=== PATIENT | female | born 1975 | race Caucasian/White ===

== ENCOUNTER 2017-12-21 18:17 | Emergency (ER) | payer BC ==
[2017-12-21] MEDS ORDERED: diazePAM 2 MG TAB PO ONE (18:30)
[2017-12-21] MEDS ORDERED: HYDROcodone 5MG/APAP 325MG 1 EA TAB PO ONE (18:30)
--- NOTE | 2017-12-21 19:28 | RAD ---
EXAM DESCRIPTION: Femur,Right (accession [id number]), Pelvis (accession [id number]) CLINICAL HISTORY: 42 years Female, trauma with medial hamstring disruption COMPARISON: None. FINDINGS: No evidence for an acute fracture of the pelvis or right femur. No dislocation. Several small calcific densities in the lower pelvis are suggestive of phleboliths. Visualized bowel gas pattern appears nonobstructive. Surrounding soft tissues are unremarkable. IMPRESSION: No evidence for an acute fracture of the pelvis or right femur. Electronically signed by: Chaparro Knox MD 12/21/2017 7:27 PM CDT
--- NOTE | 2017-12-21 19:28 | RAD ---
EXAM DESCRIPTION: Femur,Right (accession [id number]), Pelvis (accession [id number]) CLINICAL HISTORY: 42 years Female, trauma with medial hamstring disruption COMPARISON: None. FINDINGS: No evidence for an acute fracture of the pelvis or right femur. No dislocation. Several small calcific densities in the lower pelvis are suggestive of phleboliths. Visualized bowel gas pattern appears nonobstructive. Surrounding soft tissues are unremarkable. IMPRESSION: No evidence for an acute fracture of the pelvis or right femur. Electronically signed by: Chaparro Knox MD 12/21/2017 7:27 PM CDT
[2017-12-21] MEDS ORDERED: HYDROcodone 7.5MG/APAP 325MG 1 EA TAB PO ONE (19:36)
[2017-12-21] MEDS ORDERED: KETOROLAC TROMETHAMINE INJ 30 MG/ML VIAL IM ONE (19:36)
--- NOTE | 2017-12-21 19:39 | ED.PDOC ---
History of Present Illness - General Chief Complaint: Lower Extremity Injury Time Seen by Provider: 12/21/17 18:22 Source: patient Exam Limitations: no limitations - History of Present Illness Initial Comments: The patient a 42-year-old female presenting to the emergency room after having pulled a hamstring while wake boarding. The patient has pain to the medial posterior thigh. She has a flaccid distal hamstring tendon. She does have palpable balled muscle. Most of her pain however comes at the proximal initial tuberosity insertion site. She has pain with almost any movement of the leg. There is no evidence of any uncontrolled bleeding. No evidence of any other injury. I suspect this is likely a full-thickness semitendonous muscle tear but it may however be a semi-membranous muscle tear. Timing/Duration: 1 hour Severity: severe Improving Factors: immobilization Worsening Factors: movement Associated Symptoms: denies symptoms Allergies/Adverse Reactions: Allergies NO KNOWN ALLERGY Allergy (Verified 12/21/17 18:27) Home Medications: Ambulatory Orders Fpyyyaqqnfvem-Csda-Jmfdidibba [Fioricet] 1 ea PO Q6HR PRN #60 tab 12/21/17 Carisoprodol [Soma] 350 mg PO Q6HR PRN #30 tab 12/21/17 Review of Systems - Review of Systems Constitutional: States: no symptoms reported EENTM: States: no symptoms reported Respiratory: States: no symptoms reported Cardiology: States: no symptoms reported Gastrointestinal/Abdominal: States: no symptoms reported Genitourinary: States: no symptoms reported Musculoskeletal: States: see HPI Skin: States: no symptoms reported Neurological: States: no symptoms reported Endocrine: States: no symptoms reported All other Systems: No Change from Baseline Past Medical History (General) - Patient Medical History Hx Seizures: No Hx Stroke: No Hx Dementia: No Hx Asthma: No Hx of COPD: No Hx Cardiac Disorders: No Hx Congestive Heart Failure: No Hx Pacemaker: No Hx Hypertension: No Hx Thyroid Disease: No Hx Diabetes: No Hx Gastroesophageal Reflux: No Hx Renal Disease: No Hx Cancer: No Hx of HIV: No Hx Hepatitis C: No Hx MRSA: No Surgical History: no surgical history - Vaccination History Hx Tetanus, Diphtheria Vaccination: No Hx Influenza Vaccination: Yes Hx Pneumococcal Vaccination: Yes Immunizations Up to Date: No - Social History Hx Tobacco Use: No Hx Chewing Tobacco Use: No Hx Alcohol Use: No Hx Substance Use: No Hx Substance Use Treatment: No Hx Depression: No Feels Threatened In Home Enviroment: No Feels Threatened In a Relationship: No Hx Physical Abuse: No Hx Emotional Abuse: No Hx Suspected Abuse: No - Activities of Daily Living Hospice Agency (if applicable):: None - Female History Patient is a Female of Child Bearing Age (10 -59 yrs old): Yes Patient : Yes Family Medical History - Family History Mother Family History: Unknown Physical Exam - Physical Exam General Appearance: Alert, No apparent distress Eye Exam: bilateral normal Ears, Nose, Throat: hearing grossly normal Neck: full range of motion, supple Respiratory: lungs clear, normal breath sounds, no respiratory distress, no accessory muscle use Cardiovascular/Chest: normal peripheral pulses, regular rate, rhythm, no edema Peripheral Pulses: dorsalis pedis,right: 2+, dorsalis pedis,left: 2+, posterior tibialis,right: 2+, posterior tibialis,left: 2+ Gastrointestinal/Abdominal: non tender, soft Rectal Exam: deferred Back Exam: normal inspection, no CVA tenderness Extremity: no pedal edema, no calf tenderness, normal capillary refill, other - see history of present illness 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 I'm uncertain if this is a tear of the proximal semi-tendinous or semi-membranous muscle. The patient will be placed on crutches. Dr. Jasmin Nur has been contacted at [phone] and he has instructed for the patient to call his office Sunday to get set up for evaluation. The patient will be written for Fioricet for as needed use for pain control and she can use some Soma as needed for a muscle relaxer. She needs to keep herself well-hydrated. She will be placed on crutches. She should expect some bruising tomorrow. ER warnings were given for any worsening otherwise. X-ray of the femur and pelvis show no evidence of any fracture or dislocation. - EKG/XRAY/CT CT Ordered: No CT Interpretation Call Back: No Departure - Departure Clinical Impression: Hamstring tear ICD-10 Supporting Text: right, medial, initial evaluation. Disposition: Discharge to Home or Self Care Condition: Fair Departure Forms: ED Discharge - Pt. Copy, Patient Portal Self Enrollment Diet: regular diet Activity: increase activity as tolerated Prescriptions: Qrvbqvvvgudlw-Uuzk-Sfpfgugnrq [Fioricet] 1 ea PO Q6HR PRN #60 tab PRN Reason: Pain Carisoprodol [Soma] 350 mg PO Q6HR PRN #30 tab PRN Reason: Muscle Spasms Home Medications: Ambulatory Orders Nouhrheicqbhu-Euou-Lcorzhntmq [Fioricet] 1 ea PO Q6HR PRN #60 tab 12/21/17 Carisoprodol [Soma] 350 mg PO Q6HR PRN #30 tab 12/21/17 Additional Instructions: the patient is a 42-year-old female presenting with a full-thickness medial hamstring tear on the right side. I'm uncertain if this is a tear of the proximal semi-tendinous or semi-membranous muscle. The patient will be placed on crutches. Dr. Jasmin Nur has been contacted at [phone] and he has instructed for the patient to call his office Sunday to get set up for evaluation. The patient will be written for Fioricet for as needed use for pain control and she can use some Soma as needed for a muscle relaxer. She needs to keep herself well-hydrated. She will be placed on crutches. She should expect some bruising tomorrow. ER warnings were given for any worsening otherwise. X-ray of the femur and pelvis show no evidence of any fracture or dislocation.
[2017-12-21 20:00] VITALS: TEMP 98.8
[2017-12-21 20:12] VITALS: BP 133/85; O2SAT 97
== END 2017-12-21 20:10 | disposition home or self-care (01) ==
LOC: ER 18:17
DX: S76.811A Strain of other specified muscles, fascia and tendons at thigh level, right thigh, initial encounter (principal); X58.XXXA Exposure to other specified factors, initial encounter; Y92.9 Unspecified place or not applicable; Y93.89 Activity, other specified
CPT/HCPCS: 72170; 73551; J1885